=== PATIENT | female | born 1970 | race Caucasian/White ===

== ENCOUNTER 2018-05-21 09:28 | Day surgery (SDC) | payer OTHER ==
[~2018-05-21] VITALS: Ht 172.7 cm; Wt 106.6 kg
[~2018-05-21 09:28] MED LIST: CEFAZOLIN 1 GM IVPB PREMIX 50 ML IV ONE
[2018-05-21] MEDS ORDERED: POLYMYXIN 500,000/BACIT.10,000 UNITS in NS IRR 1 L IR ONE (11:41)
[2018-05-21] MEDS ORDERED: METOCLOPRAMIDE HCL 10 MG/2 ML VIAL IVP PRN (12:30)
[2018-05-21] MEDS ORDERED: MORPHINE 4 MG/ML INJ. SYRINGE IVP PRN ×2 (12:30)
[2018-05-21] MEDS ORDERED: D5/0.45 NS 1,000 ML IV SCH (12:47)
[2018-05-21] MEDS ORDERED: ATROPINE SULFATE 0.4 MG/ML VIAL ONE (12:55)
[2018-05-21] MEDS ORDERED: BUPIVACAINE /PF 0.5% 30 ML VIAL ONE (12:55)
[2018-05-21] MEDS ORDERED: ROCURONIUM BROMIDE 10 MG/ML (ZEMURON) ONE (12:55)
[2018-05-21] MEDS ORDERED: NS IRRIG SOLN 1000 ML IR ONE (12:55)
[2018-05-21] MEDS ORDERED: fentaNYL CITRATE/PF 100 MCG/2 ML AMP ONE (12:55)
[2018-05-21] MEDS ORDERED: SEVOFLURANE 15 MIN GAS INH ONE (12:55)
[2018-05-21] MEDS ORDERED: MIDAZOLAM HCL 5 MG/ML VIAL (VERSED) IV ONE (12:55)
[2018-05-21] MEDS ORDERED: PROPOFOL 200MG/ 20ML VIAL (DIPRIVAN) IV ONE (12:55)
[2018-05-21] MEDS ORDERED: ONDANSETRON HCL 4 MG/2 ML VIAL ONE (12:55)
[2018-05-21] MEDS ORDERED: LR 1,000 ML IV.SOLN IV ONE (12:55)
[2018-05-21] MEDS ORDERED: HYDROmorphone 1 MG INJ. 1 MG/ML AMPUL IVP PRN (13:00)
[2018-05-21] MEDS: MORPHINE 4 MG/ML INJ. SYRINGE IVP PRN ×2 (13:10→13:25)
[2018-05-21] MEDS ORDERED: MORPHINE 4 MG/ML INJ. SYRINGE ONE (13:17)
[2018-05-21] MEDS ORDERED: HYDROcodone/ACETAMIN 5-325 MG TAB (NORCO/ VICODIN) ONE (14:18)
[2018-05-21 15:06] VITALS: BP_SYST 119
[2018-05-21] MEDS ORDERED: HYDROcodone/ACETAMIN 5-325 MG TAB (NORCO/ VICODIN) PO PRN ×2 (15:30)
== END 2018-05-21 15:05 | disposition home or self-care (01) ==
LOC: SDS 09:28 → SMU 09:29 → SDS 15:05
PROVIDERS: ATTEND Colon & Rectal Surgery
DX: K43.0 Incisional hernia with obstruction, without gangrene (principal); E11.9 Type 2 diabetes mellitus without complications; I10 Essential (primary) hypertension; M19.90 Unspecified osteoarthritis, unspecified site; E66.01 Morbid (severe) obesity due to excess calories; Z90.710 Acquired absence of both cervix and uterus; Z98.890 Other specified postprocedural states; Z80.3 Family history of malignant neoplasm of breast; Z80.8 Family history of malignant neoplasm of other organs or systems; Z68.36 Body mass index [BMI] 36.0-36.9, adult; Z79.84 Long term (current) use of oral hypoglycemic drugs
CPT/HCPCS: 82962; 88302; C1781; J0461; J0690; J2250; J2270; J2405; J2704; J3010; J3490; J7120

== ENCOUNTER 2019-03-02 19:31 | Emergency (ER) | payer BC, OTHER ==
[~2019-03-02] VITALS: Ht 170.2 cm; Wt 102.1 kg
[2019-03-02 19:45] VITALS: BP_SYST 162
[2019-03-02] MEDS ORDERED: MORPHINE 4 MG/ML INJ. SYRINGE IM ONE (20:45)
[2019-03-02 21:24] VITALS: BP_SYST 136
== END 2019-03-02 21:16 | disposition home or self-care (01) ==
LOC: SED 19:31
DX: S63.92XA Sprain of unspecified part of left wrist and hand, initial encounter (principal); E11.9 Type 2 diabetes mellitus without complications; I10 Essential (primary) hypertension; Z88.6 Allergy status to analgesic agent; W23.0XXA Caught, crushed, jammed, or pinched between moving objects, initial encounter; Y93.89 Activity, other specified; Y92.89 Other specified places as the place of occurrence of the external cause; Y99.8 Other external cause status
CPT/HCPCS: 29125; 73140; 96372; 99283; J2270

== ENCOUNTER 2020-01-01 14:16 | Emergency (ER) | payer BC, OTHER ==
[~2020-01-01] VITALS: Ht 170.2 cm; Wt 99.8 kg
[2020-01-01 14:59] VITALS: BP_SYST 113
--- NOTE | 2020-01-01 15:05 | NUR ---
Patient triaged and placed in waiting room. VSS and patient appears in no acute distress at this time. Accompanied by daughters, awaiting available bed, and MD notified of need for MSE.
[2020-01-01 17:01] LABS: BASOPHILS # (AUTO) 0.1 K/uL (0.0-0.2); BASOPHILS % (AUTO) 0.8 % (0.0-2.0); EOSINOPHILS # (AUTO) 0.1 K/uL (0.0-0.4); EOSINOPHILS % (AUTO) 0.4 % (0.0-4.0); HEMATOCRIT 38.9 % (36-48); HEMOGLOBIN 12.9 g/dL (12.0-16.0); LYMPHOCYTES # (AUTO) 2.3 K/uL (1.0-5.5); LYMPHOCYTES % (AUTO) 18.3 % (20.5-51.5); MEAN CORPUSCULAR HEMOGLOBIN 29 pg (27-31); MEAN CORPUSCULAR HGB CONC 33 % (32-36); MEAN CORPUSCULAR VOLUME 86 fL (79.0-98.0); MONOCYTES # (AUTO) 0.7 K/uL (0.0-1.0); MONOCYTES % (AUTO) 5.9 % (1.7-9.3); NEUTROPHILS # (AUTO) 9.3 K/uL (1.8-7.7); NEUTROPHILS % (AUTO) 74.6 % (40.0-70.0); PLATELET COUNT (AUTO) 224 K/uL (130-430); RED BLOOD CELL COUNT(AUTO) 4.52 MIL/uL (4.2-6.2); RED CELL DISTRIBUTION WIDTH 15.1 % (9.0-15.0); WHITE BLOOD COUNT (AUTO) 12.4 K/uL (4.8-10.8)
[2020-01-01 17:14] LABS: CREATININE 0.65 mg/dL (0.55-1.30); POTASSIUM 4.4 mmol/L (3.5-5.1)
[2020-01-01 17:22] LABS: ALBUMIN 3.6 g/dL (3.4-4.8); TOTAL BILIRUBIN 0.2 mg/dL (0.0-1.0)
[2020-01-01 17:35] VITALS: BP_SYST 129
[2020-01-01 18:06] LABS: BILIRUBIN,URINE NEGATIVE (NEGATIVE); BLOOD, URINE NEGATIVE (NEGATIVE); CLARITY/URINE CLEAR (CLEAR); COLOR,URINE YELLOW (YELLOW); GLUCOSE,URINE NEGATIVE (NEGATIVE); KETONES,URINE NEGATIVE (NEGATIVE); LEUKOCYTE ESTERASE ,URINE NEGATIVE (NEGATIVE); NITRITE, URINE NEGATIVE (NEGATIVE); PROTEIN URINE NEGATIVE (NEGATIVE); UROBILINOGEN,URINE 0.2 (0.2-1.0)
[2020-01-01] MEDS ORDERED: NACL 0.9% 1,000 ML IV ONE (18:30)
[2020-01-01] MEDS ORDERED: fentaNYL CITRATE/PF 100 MCG/2 ML AMP IVP ONE (18:30)
[2020-01-01] MEDS ORDERED: ONDANSETRON HCL 4 MG/2 ML VIAL IVP ONE (18:30)
== END 2020-01-01 17:35 | disposition home or self-care (01) ==
LOC: SED 14:16
DX: K80.42 Calculus of bile duct with acute cholecystitis without obstruction (principal); E11.9 Type 2 diabetes mellitus without complications; I10 Essential (primary) hypertension; Z88.6 Allergy status to analgesic agent; Z90.710 Acquired absence of both cervix and uterus
CPT/HCPCS: 36415; 80053; 81003; 83690; 85025; 96374; 96375; 99284; J2405; J3010; J7030

== ENCOUNTER 2024-05-22 03:59 | Emergency (ER) | payer BC, OTHER ==
[~2024-05-22] VITALS: Ht 170.2 cm; Wt 99.8 kg
[2024-05-22 04:06] VITALS: BP_SYST 121; PULSE 73; RESP 20; TEMP 96.3; O2SAT 98
[2024-05-22] MEDS: NACL 0.9% 1,000 ML IV ONE ×2 (04:42→06:46)
[2024-05-22] MEDS: KETOROLAC TROMETHAMINE 30 MG VIAL IVP ONE (04:42)
[2024-05-22] MEDS: MORPHINE 4 MG INJ. 4 MG/ML VIAL IVP ONE (04:43)
[2024-05-22 05:22] LABS: BASOPHILS # (AUTO) 0.1 K/uL (0.0-0.2); EOSINOPHILS # (AUTO) 0.2 K/uL (0.0-0.4); EOSINOPHILS % (AUTO) 1.8 % (0.0-4.0); HEMOGLOBIN 13.5 g/dL (12.0-16.0); LYMPHOCYTES # (AUTO) 1.7 K/uL (1.0-5.5); LYMPHOCYTES % (AUTO) 18.6 % (20.5-51.5); MEAN CORPUSCULAR HEMOGLOBIN 29 pg (27-31); MEAN CORPUSCULAR HGB CONC 34 % (32-36); MEAN CORPUSCULAR VOLUME 86 fL (79.0-98.0); MONOCYTES # (AUTO) 0.4 K/uL (0.0-1.0); MONOCYTES % (AUTO) 4.2 % (1.7-9.3); NEUTROPHILS # (AUTO) 6.6 K/uL (1.8-7.7); NEUTROPHILS % (AUTO) 74.4 % (40.0-70.0); PLATELET COUNT (AUTO) 227 K/uL (130-430); RED BLOOD CELL COUNT(AUTO) 4.63 MIL/uL (4.2-6.2); RED CELL DISTRIBUTION WIDTH 14.8 % (9.0-15.0); WHITE BLOOD COUNT (AUTO) 8.9 K/uL (4.8-10.8)
[2024-05-22] MEDS: ONDANSETRON HCL 4 MG/2 ML VIAL IVP ONE (05:35)
[2024-05-22 05:39] LABS: ALBUMIN 3.7 g/dL (3.4-4.8); BILIRUBIN,DIRECT 0.1 mg/dL (0.0-0.3); CALCIUM 9.4 mg/dL (8.4-11.0); CREATININE 0.91 mg/dL (0.55-1.30); POTASSIUM 4.7 mmol/L (3.5-5.1); TOTAL BILIRUBIN 0.3 mg/dL (0.0-1.0); TOTAL PROTEIN, SERUM 7.6 g/dL (6.4-8.3)
[2024-05-22 06:17] LABS: BILIRUBIN,URINE NEGATIVE (NEGATIVE); BLOOD, URINE 3+ (NEGATIVE); CLARITY/URINE SL CLOUDY (CLEAR); COLOR,URINE YELLOW (YELLOW); GLUCOSE,URINE NEGATIVE (NEGATIVE); KETONES,URINE NEGATIVE (NEGATIVE); LEUKOCYTE ESTERASE ,URINE NEGATIVE (NEGATIVE); NITRITE, URINE NEGATIVE (NEGATIVE); PH,URINE 5.5 (5.0-8.0); PROTEIN URINE TRACE (NEGATIVE); UROBILINOGEN,URINE 0.2 (0.2-1.0)
[2024-05-22 06:39] LABS: BACTERIA,URINE None Seen /HPF (None Seen); WBC,URINE 0-3 /HPF (0-3)
[2024-05-22] MEDS: METOCLOPRAMIDE HCL 10 MG/2 ML VIAL IVP ONE (06:46)
[2024-05-22] MEDS ORDERED: TAMS-11 PO (08:24)
[2024-05-22] MEDS ORDERED: KETO10TA2 PO (08:24)
[2024-05-22 08:38] VITALS: BP_SYST 123; PULSE 72; RESP 18; TEMP 98; O2SAT 96
== END 2024-05-22 08:15 | disposition home or self-care (01) ==
LOC: SED 03:59
DX: R10.31 Right lower quadrant pain (principal); N13.2 Hydronephrosis with renal and ureteral calculous obstruction; R11.2 Nausea with vomiting, unspecified; E11.9 Type 2 diabetes mellitus without complications; I10 Essential (primary) hypertension; Z90.710 Acquired absence of both cervix and uterus; Z98.890 Other specified postprocedural states
CPT/HCPCS: 99285; 74176; 96374; 96375; 96361; 80076; 80048; 81001; 85025; 36415; J1885; J2765; J2405; J2270; J7030; 81000; 81015